=== PATIENT | female | born 1980 | race African-American/Black ===

== ENCOUNTER 2016-07-29 14:20 | Emergency (ER) | payer MEDICAID ==
[~2016-07-29] VITALS: Ht 170.2 cm; Wt 80.7 kg
[2016-07-29 20:07] LABS: Basophils # (auto) 0 uL; Basophils % (auto) 0.3 % (0.0-2.0); Eosinophils # (auto) 0.2 uL; Eosinophils % (auto) 2.9 % (0.0-7.0); Hematocrit 36.5 % (36.0-46.0); Hemoglobin 12.1 g/dL (12.2-16.2); Lymphocytes # (auto) 2.5 uL; Lymphocytes % (auto) 36.7 % (10.0-50.0); Mean Corpuscular Hemoglobin 27.4 pg (28.0-32.0); Mean Corpuscular Volume 82.8 fL (80.0-100.0); Mean Platelet Volume 7.9 fL (7.4-10.4); Monocytes # (auto) 0.4 uL; Monocytes % (auto) 5.6 % (0.0-12.0); Neutrophils # (auto) 3.7 uL; Neutrophils % (auto) 54.5 % (37.0-80.0); Platelet Count (auto) 262 10^3/uL (140-450); White Blood Cell 6.8 10^3/uL (4.4-10.8)
[2016-07-29 20:21] LABS: Chloride 111 mmol/L (98-107); Potassium 3.6 mmol/L (3.5-5.1); Sodium 143 mmol/L (136-145)
[2016-07-29 20:25] LABS: Anion Gap 11 (5-15); BUN/Creatinine Ratio 12.8; Blood Urea Nitrogen 12 mg/dL (7-18); Carbon Dioxide 21 mmol/L (21-32); GFR African American 86 mL/min; Glucose 82 mg/dL (74-106)
[2016-07-29 20:26] LABS: Albumin 3.5 g/dL (3.4-5.0); Aspartate Aminotransferase 13 U/L (15-37); Calcium 8.7 mg/dL (8.5-10.1); GFR Non-African American 71 mL/min
[2016-07-29 20:30] LABS: Alkaline Phosphatase 25 U/L (45-117); Bilirubin, Total 0.5 mg/dL (0.2-1.0); Total Protein 7.4 g/dL (6.4-8.2)
[2016-07-29 21:17] LABS: B-Type Natriuretic Peptide 6.61 pg/mL (0-100)
[2016-07-29 21:18] LABS: Temperature: 23.5 C (20.0-25.0)
[2016-07-30] MEDS ORDERED: ALUM & MAG HYDROX-SIMETH LIQ(MAALOX) 30 ML PO ONE ×2 (00:30→00:45)
[2016-07-30] MEDS ORDERED: DONNATAL 5ml ORAL Elix (BELLADONNA ALK-PHENOBARB) PO ONE (00:45)
[2016-07-30] MEDS ORDERED: LIDOCAINE VISCOUS 2% 15ML UD MT ONE (00:45)
[2016-07-30] MEDS ORDERED: SODIUM CHLORIDE 0.9% 1,000 ML IV ONE (02:15)
[2016-07-30] MEDS ORDERED: cefTRIAXone 1GM/50ML D5W 50 ML IV ONE (02:15)
[2016-07-30] MEDS ORDERED: MORPHINE SULFATE 4 MG/ML SYRG IV ONE (02:15)
[2016-07-30] MEDS ORDERED: ONDANSETRON HCL 4 MG/2 ML VIAL IV ONE (02:15)
[2016-07-30 03:18] VITALS: BP 119/77
== END 2016-07-30 03:20 | disposition home or self-care (01) ==
LOC: ER 14:20
DX: K21.0 Gastro-esophageal reflux disease with esophagitis (principal); R10.9 Unspecified abdominal pain; R05 Cough
CPT/HCPCS: 36415; 71020; 80053; 83690; 83880; 84484; 85025; 93005